=== PATIENT | female | born 1970 | race Caucasian/White ===

== ENCOUNTER → 2016-12-22 | Outpatient (CLI) | payer OTHER ==
[~2016-12-22] MED LIST: DEXL60CA OR
--- NOTE | 2016-12-23 07:52 | MAMMOGRAPHY REPORT ---
BILATERAL DIGITAL DIAGNOSTIC MAMMOGRAM TOMOSYNTHESIS WITH CAD AND TARGETED LEFT ULTRASOUND: 12/22/2016 CLINICAL HISTORY: 46-year-old woman presents for follow-up in the left breast for a focal asymmetry i n the 12:00 posterior breast and also overdue for bilateral screening mammography. TECHNIQUE: Bilateral CC and MLO 2-D and tomosynthesis images were obtained. Current study was also ev aluated with a Computer Aided Detection (CAD) system. COMPARISON: Comparison is made to exams dated: 09/05/2015 ultrasound, 09/05/2015 mammogram, 03/06/2015 mammogram, 03/06/2015 ultrasound, 02/20/2015 mammogram, and 12/15/2010 mammogram - [facility]. BREAST COMPOSITION: There are scattered areas of fibroglandular density in both breasts. FINDINGS: A focal asymmetry is again noted in the 12:00 posterior left breast, measuring 5 x 12 mm. When comparing back to all available prior mammograms, this appears similar to the 09/05/2015 and 08/2015 mammograms, but it is increasingly prominent compared to the 2013, 2012 and 2010 exam. Altho ugh it could represent an island of normal fibroglandular tissue or benign entity such as PASH, malig ramya cannot be completely excluded. Further evaluation with ultrasound was performed. No other new areas of distortion, asymmetries, calcifications or other obvious masses are identified mammographic ally. Targeted ultrasound was performed in the left breast, 11:00, 12:00, 1:00 and retroareolar axes. In t he 12:00 left breast, 67 m from the nipple, there is an isoechoic microlobulated solid appearing mass measuring 4.0 x 2.7 x 6.5 mm. This is incidentally identified but given the solid microlobulated ap pearance, definitive characterization with an ultrasound-guided core biopsy is recommended. There is no definite sonographic correlate for the focal mammographic asymmetry. Regarding the asymmetry, although it is most likely benign given approximately 18 months of stability , definitive characterization with a stereotactic tomosynthesis guided biopsy is recommended. The fo teddy asymmetry is best visualized on CC tomosynthesis slice 37 and MLO tomosynthesis slice 52. IMPRESSION: ACR BI-RADS CATEGORY 4: SUSPICIOUS, TARGETED ULTRASOUND ACR BI-RADS CATEGORY 4: SUSPICIO US 1. Ultrasound-guided core biopsy is recommended for an indeterminate solid microlobulated 6.5 mm mas s in the 12:00 left breast, 6 cm from the nipple, incidentally identified on ultrasound. 2. Stereotactic tomosynthesis guided biopsy is recommended for a focal asymmetry in the 12:00 planer mill grader ior left breast, for which no sonographic correlate was identified. 3. Stable mammographic appearance of the right breast, without evidence of malignancy. Recommend ro utine screening in 1 year. These results and recommendations were discussed with the patient at the time of the exam. She tentpooja tively scheduled the left breast biopsies prior to leaving our department. Approximately 10% of breast cancers are not detected with mammography. A negative mammographic report should not delay biopsy if a clinically suggestive mass is present. Saranya Clemons M.D. ay/:12/22/2016 12:23:18 Movie Projectionist: Marilyn Muniz, [facility] letter sent: Abnormal 4/5 BI-RADS Code: ACR BI-RADS Category 4: Suspicious Ultrasound BI-RADS: ACR BI-RADS Category 4: Suspici ous
== END | disposition home or self-care (01) ==
LOC: C.MAMM 09:44
PROVIDERS: ATTEND Family Medicine
DX: R92.8 Other abnormal and inconclusive findings on diagnostic imaging of breast (principal); N63.0 Unspecified lump in unspecified breast

== ENCOUNTER → 2017-01-03 | Outpatient (CLI) | payer OTHER ==
--- NOTE | 2017-01-03 13:22 | Discharge Instructions ---
Discharge Instructions Procedure Procedure Date: Jan 03, 2017. Reason for visit: Left Asymmetry; Usbx Left Mass. Discharge Discharge Date: Jan 03, 2017. Discharge Diagnosis: status post breast biopsy Instructions Activity Recommendations: Additional Limitations (see below) Return to School/Work: no limitations Recommended Home Diet: No Limitations Provider Instructions: ACTIVITY RECOMMENDATIONS: * No lifting, pushing, pulling or exercising the affected side for three days. RETURN TO SCHOOL/WORK: * You may return to work/school after the procedure, but do not perform any strenuous activities for 24 to 48 hours. MEDICATIONS: * Tylenol (two 325 mg) every four to six hours if needed for mild pain (if not allergic to Tylenol). DIET: * Resume previous diet. SPECIAL CARE INSTRUCTIONS: * Keep biopsy site dry for 24 hours. May shower after 24 hours, but do not soak (bathe) incision. * May remove Tegaderm (plastic patch) tomorrow AFTER showering. * Leave the steri-strips on for one week. Allow the steri-strips to fall off by themselves. If not off after one week, you may remove them. You may place a Bandaid crosswise over the strips, if desired. * Apply ice 10 minutes on and 10 minutes off as needed. * Wear a bra at bedtime to sleep more comfortably for 2-3 days. * Your referring physician should have the results after approximately 5 to 7 business days. * Call for unusual bleeding, fever, drainage, etc or if you have any questions call during normal business hours or after hours call Dr Martins, . FOLLOW UP VISIT: Follow-up with Referring Physician as scheduled. Allergies Coded Allergies: Iodine (Verified Allergy, 03/21/09) Uncoded Allergies: CT SCAN DYE-SOB (Allergy, Unknown, 03/29/02) IODINE (CT SCAN DYE) (Allergy, Unknown, 03/29/02) N (Allergy, Unknown, 03/29/02) NKA (Allergy, Unknown, 03/29/02) NKFA (Allergy, Unknown, 03/29/02) CONTRASTMEDIA (Allergy, 03/21/09) Cecile Robertson Recommendations: Call your doctor if: * Temperature above 101 degrees * Pain not relieved by pain medicine ordered * There is increased drainage or redness from any incision * You have any unanswered questions or concerns. Your Doctors Instructions noted above were prepared by provider Nilda Martins. Patient Signature Section: Patient Instructions Signature Page Patti Pedraza Patient (or Guardian) Signature/Date: I have read and understand the instructions given to me by my caregivers. Caregiver/RN/Doctor Signature/Date: The above-named patient and/or guardian has received patient instructions on this date. + Original Patient Signature Page (only) stays with chart. Please make copy for patient.
--- NOTE | 2017-01-03 14:45 | MAMMOGRAPHY REPORT ---
STEREOTACTIC GUIDED BIOPSY LEFT BREAST: 01/03/2017 CLINICAL HISTORY: Focal asymmetry in the left 12:00 breast. PATIENT CONSENT: The procedure, risks, benefits, and alternatives of stereotactic biopsy with clip pl acement were discussed with the patient, and verbal and written consent was obtained. A timeout was performed immediately prior to the procedure. PROCEDURE DESCRIPTION: With tomosynthesis stereotactic guidance, aseptic technique, and lidocaine as a local anesthetic (1% lidocaine to anesthetize the skin and 1% lidocaine with epinephrine to anesthe tize the deeper tissues), the focal asymmetry in the left 12:00 breast was sampled multiple times wit h a 9-gauge vacuum-assisted biopsy needle ([employer]). The path of approach was craniocaudal. A m etallic marker clip was placed at the biopsy site. This was confirmed on postprocedure mammograms. Direct pressure was applied at the biopsy site and hemostasis was readily achieved. The patient camila rated the procedure without complication. She was given wound care instructions. COMPARISON: Comparison is made to exams dated: 12/22/2016 mammogram, 09/05/2015 mammogram, 03/06/2015 m ammogram, 02/20/2015 mammogram, 12/15/2010 mammogram, and 12/17/2005 mammogram - [facility] nter. IMPRESSION: STEREOTACTIC GUIDED BIOPSY Tomosynthesis stereotactic guided biopsy of focal asymmetry in the left 12:00 posterior breast, with clip placement. The patient will receive pathology results from her referring provider. Nilda Martins M.D. /:01/03/2017 13:59:13 Turf Farm Worker: Michael MOSS)(M), [facility]
--- NOTE | 2017-01-03 14:45 | MAMMOGRAPHY REPORT ---
ULTRASOUND GUIDED BIOPSY LEFT BREAST: 01/03/2017 CLINICAL HISTORY: Left 12:00 breast mass. PATIENT CONSENT: The procedure, risks and benefits were discussed with the patient and informed writt en consent was obtained. A timeout was performed immediately prior to the procedure. PROCEDURE DESCRIPTION: With ultrasound guidance, aseptic technique, and lidocaine as the local anesth etic (1% lidocaine to anesthetize the skin and 1% lidocaine with epinephrine to anesthetize the deepe r tissues), the mass of concern in the left 12:00 breast was sampled 4 times with a 14-gauge Achieve biopsy needle. Immediately thereafter, with ultrasound guidance, aseptic technique, and lidocaine as the local anesthetic, a metallic localizer clip was placed centrally in the mass. Direct pressure wa s applied to the site immediately post procedure and hemostasis was achieved. Postprocedure unilater al mammograms were performed to confirm clip placement. The patient tolerated the procedure without c omplication. She was given wound care instructions. The specimens were sent to pathology for analysi s. COMPARISON: Comparison is made to exams dated: 12/22/2016 mammogram, 12/22/2016 ultrasound, 09/05/2015 ultrasound, 09/05/2015 mammogram, 03/06/2015 mammogram, and 03/06/2015 ultrasound - [facility]. IMPRESSION: ULTRASOUND GUIDED BIOPSY Ultrasound guided core needle biopsy of the left 12:00 breast mass, with clip placement. The patient will receive pathology results from her referring provider. Nilda Martins M.D. /:01/03/2017 13:45:50 Attending Technologist: Michael CARTER(R)(M), [facility] Verify Rep: Nilda Martins MD, [facility]
--- NOTE | 2017-01-03 14:47 | MAMMOGRAPHY REPORT ---
UNILATERAL LEFT DIGITAL DIAGNOSTIC MAMMOGRAM TOMOSYNTHESIS: 01/03/2017 CLINICAL HISTORY: Status post left breast biopsies. TECHNIQUE: Breast tomosynthesis in addition to standard 2D mammography was performed. Postprocedura l left CC and ML tomosynthesis images including C views were obtained. COMPARISON: Comparison is made to exams dated: 12/22/2016 mammogram, 09/05/2015 mammogram, 03/06/2015 m ammogram, 02/20/2015 mammogram, 12/15/2010 mammogram, and 12/17/2005 mammogram - [facility] nter. BREAST COMPOSITION: There are scattered areas of fibroglandular density in the left breast. FINDINGS: A new dumbbell-shaped biopsy marker clip is seen at the site of the biopsied focal asymmet ry in the left 12:00 posterior breast. A new ribbon-shaped biopsy marker clip is seen in the left johnson perior and slightly lateral breast at the site of ultrasound-guided biopsy of the left 12:00 breast m ass. No significant postbiopsy hematoma is seen. IMPRESSION: POST PROCEDURE IMAGING FOR MARKER PLACEMENT New biopsy marker clips status post left breast biopsies. Pathology results are pending. Approximately 10% of breast cancers are not detected with mammography. A negative mammographic report should not delay biopsy if a clinically suggestive mass is present. Nilda Martins M.D. /:01/03/2017 14:01:11 Lacquer Polisher: Michael CARTER(Cain)(M), [facility] BI-RADS Code: Post Procedure Imaging For Marker Placement
== END | disposition home or self-care (01) ==
LOC: C.MAMM 12:46
PROVIDERS: ATTEND Family Medicine
DX: N63.20 Unspecified lump in the left breast, unspecified quadrant (principal); D24.2 Benign neoplasm of left breast